=== PATIENT | female | born 1990 | race Caucasian/White ===

== ENCOUNTER 2020-10-03 06:13 | Inpatient (IN) | payer OTHER ==
[~2020-10-03] VITALS: Ht 165.1 cm; Wt 128.0 kg
[2020-10-03] VITALS (22 sets, daily range): BP systolic 117–185; BP diastolic 77–124
--- NOTE | 2020-10-03 06:20 | NUR ---
Patient admit/transfer from [facility] at 0610 to room 107 via guerny, accompanied by EMS personel x4. Patient alert/oriented to self, time, date and events but disoriented to place. Patient admitted for OD/SI S/P taking high doses of Excedrin and Tylenol. Patient reports being in a 'downward spiral' for the past few monthsl; last night she and her sister were arguing and her sister told her, 'just kill yourself', Patient states she has a hx of suicide attempt at age 16 which she took pills at that time also. Patient states she is bipolar but has not taken her meds for several months secondary to inability to afford. Patient does recognize and states she knows her sister "is not the problem". Patient denies pain but does have episode of coffee ground emesis. Patient transferred with secondo dose of Acetadole 5gm IV running at 131 CC/HR; patient to recieve a third dose of 10MG. Patient oriented to room, ICU routine, nrusing call light, TV control, diet (NPO), activity (BRP with assist), Numeric pain scale, 1:1 observation and POC. Patient verbalizes understanding.
[2020-10-03] MEDS ORDERED: PROCHLORPERAZINE 10 MG/2 ML VIAL. IV PRN (06:45)
[2020-10-03] MEDS ORDERED: PROCHLORPERAZINE 5 MG TABLET. PO PRN (06:45)
[2020-10-03] MEDS: LABETALOL 20 MG/4 ML DISP.SYRIN. IVP PRN ×2 (06:50→20:49)
[2020-10-03 08:32] LABS: CALCIUM 8.2 mg/dL (8.5-10.1); CREATININE 0.5 mg/dL (0.6-1.0); GFR 145.9; POTASSIUM 3.5 mmol/L (3.5-5.1)
[2020-10-03 08:36] LABS: ACETAMIN 75.52 mcg/ml (10-30); SALIC 9.8 mg/dL (2.8-20.0)
[2020-10-03 08:36] LABS: ISTAT BE VENOUS -4 mmol/L (0-3); ISTAT HCO3 VEN 21 mmol/L (24-28); ISTAT PCO2 VEN 37 mmHg (41-51); ISTAT PH VEN 7.36 (7.32-7.42); ISTAT PO2 VEN 46 mmHg (20-40); ISTAT SAT O2 VEN 81 %; ISTAT TCO2 VEN 22 mmol/L (21-32)
[2020-10-03 08:37] LABS: ALBUMIN 3.1 g/dL (3.4-5.0); ALBUMIN/GLOBULIN RATIO 0.9 (1.0-1.7); TOTAL BILIRUBIN 0.4 mg/dL (0.2-1.0); TOTAL PROTEIN 6.6 g/dL (6.4-8.2)
--- NOTE | 2020-10-03 08:42 | HP ---
ADMIT DATE: 10/03/2020 HISTORY OF PRESENT ILLNESS: The patient is a 29-year-old female patient with past medical history significant for anxiety, depression who presented to the Emergency Room with chief complaint of suicidal attempt and overdose. She took about 30 grams of acetaminophen, 25 gram of aspirin and 6500 mg of caffeine on top of some ethanol and cocaine. Stated that she took all of these, Tylenol and Excedrin pills around 12:00 to 12:30 in an attempt to commit suicide after arguing with her sister who told her she should just kill herself. She stated she also had had ethanol and cocaine about the same time. Stated that since then she has an episode of nonbloody, nonbilious emesis and feels tired, but currently has no other symptoms. She denied any recent trauma, fever. She apparently denied any homicidal ideation or hallucination. She stated that she has 2 similar episodes when she was 16 and also 19 years old and was admitted to an inpatient Psych Unit before. She was extensively evaluated in the Emergency Room of [facility]. Her EKG showed that she was in sinus rhythm, heart rate 92 beats per minute. Her lab work showed that her acetaminophen level was 203 mcg/mL about 4 hours after ingestion and her salicylate was 12.5 mg/dL 4 hours after ingestion. Blood alcohol level was high at 28 mg/dL and she was positive for cocaine and amphetamine and methamphetamine. She was apparently started on N-acetylcysteine as per protocol and she received the first dose and the second dose was ongoing by the time she arrived to the [facility]. PAST MEDICAL HISTORY: Significant for -induced hypertension. She has also anxiety and depression and previous suicidal attempt. PAST SURGICAL HISTORY: Significant for 2 C-sections and cholecystectomy. ALLERGIES: She has no known drug allergies. MEDICATIONS: She is supposed to be on Celexa, but apparently she lost her insurance according to her. FAMILY HISTORY: Noncontributory. SOCIAL HISTORY: She is from her . She has 3 children, twins 10 years old and another child 8 years old. She smoke cigarettes, drink alcohol and abuse cocaine. She apparently was fired from her job on the spot as her mom tried to document for her absence. Currently unemployed and she and her she and her sister live with her parents. PHYSICAL EXAMINATION: GENERAL: On arrival to the Emergency Room, she was well-developed and well-nourished, in no acute distress. No pallor, jaundice, cyanosis or thyromegaly. No jugular venous distention. No limb edema. VITAL SIGNS: Her heart rate was 88, blood pressure is 161/106, temperature was 98.2, respiratory rate 20, and oxygen saturation was 99% on room air. HEAD, EYES, EARS, NOSE, AND THROAT: Normocephalic, atraumatic. NECK: Supple. HEART: Showed normal first and second heart sounds, no gallop or murmur. CHEST: Clear to auscultation, no crepitation or rhonchi. ABDOMEN: Distended, soft, nontender. NEUROLOGIC: She is awake, alert, responding appropriately. Cranial nerves intact. She moves extremities without difficulty. LABORATORY DATA: Her lab work on arrival showed a white cell count of 10,500; hemoglobin 13.8; hematocrit 41, MCV 87 and platelet count 230,000 with normal manual differential. Her arterial blood gas showed a pH of 7.37, pCO2 of 38, pO2 of 28, bicarbonate 22 and oxygen saturation was 51% on FiO2 of 21%. Her chemistry showed a serum sodium 141, potassium 3.5, chloride 105, bicarbonate 23, anion gap of 13, BUN 7, creatinine 0.6. Estimated GFR was 118 mL per minute. Her glucose 125, calcium was 8.7. Total bilirubin, AST, ALT, alkaline phosphatase were normal. Total protein 6.8, albumin was 3.8 and lipase was 80. Urinalysis essentially unremarkable. Her urine test was negative. Her toxic screen showed that her salicylate level was 12.6 mg/dL about 4 hours after ingestion. Her acetaminophen level was 203 mcg/mL that is about 4 hours after ingestion. Her tox screen was positive for amphetamine, methamphetamine, cocaine, cannabinoids and alcohol. ASSESSMENT AND PLAN: The patient was treated with acetylcysteine as per protocol. She was getting her second dose by the time she arrived to the ICU [facility] and third dose will start around 9:00. Will follow the salicylate level and her blood gases every 2 hours as per protocol. In summary, this is a 29-year-old female patient with a suicidal attempt by overdosing on acetaminophen and salicylates. She also has alcohol abuse and cocaine abuse and cannabinoid abuse. The patient was admitted to [facility]. We will ask the Psych assessment team to see her when she is stable medically as apparently she had had suicidal attempt, very similar to this before when she was 16 years old and 19 years old and she was admitted for inpatient psychiatric stabilization before. HAKEEM/JASON/CHARISMA DR: Stephanie TID: [id number]
--- NOTE | 2020-10-03 09:55 | NUR ---
SS following for discharge planning. SS reviewed pt chart and discussed with pt RN. Pt is from home and is currently on room air. Pt had drug overdose and SI after argument with family. COVID19 test pending from [facility]. PAT team referral made for assessment and recommendations. SS will continue to follow for discharge planning.
[2020-10-03] MEDS ORDERED: ACETYLCYSTEINE INJ 10 GM in IV DEXTROSE 5% 1,000 ML IV ONE (10:00)
[2020-10-03 11:03] LABS: SALIC 8.4 mg/dL (2.8-20.0)
[2020-10-03 11:10] LABS: ALBUMIN 2.9 g/dL (3.4-5.0); ALBUMIN/GLOBULIN RATIO 0.9 (1.0-1.7); CALCIUM 7.8 mg/dL (8.5-10.1); CREATININE 0.5 mg/dL (0.6-1.0); GFR 145.9; POTASSIUM 3.5 mmol/L (3.5-5.1); TOTAL BILIRUBIN 0.3 mg/dL (0.2-1.0); TOTAL PROTEIN 6.3 g/dL (6.4-8.2)
[2020-10-04] VITALS (14 sets, daily range): BP systolic 113–167; BP diastolic 70–111
[2020-10-04 01:21] LABS: PROTHROMBIN TIME PATIENT 13.9 SEC (11.7-14.0)
[2020-10-04 01:27] LABS: ACETAMIN < 2 mcg/ml (10-30); ALBUMIN 2.9 g/dL (3.4-5.0); ALBUMIN/GLOBULIN RATIO 0.9 (1.0-1.7); CALCIUM 8.1 mg/dL (8.5-10.1); CREATININE 0.7 mg/dL (0.6-1.0); GFR 98.9; POTASSIUM 3.2 mmol/L (3.5-5.1); TOTAL BILIRUBIN 0.4 mg/dL (0.2-1.0); TOTAL PROTEIN 6.1 g/dL (6.4-8.2)
--- NOTE | 2020-10-04 07:42 | NUR ---
pt was resting in bed and sitter next to her in room. she seemed to be in good spirits, wanted to know if she was going to get to go home today, explained that the PAT team needed to clear her before we can go any further with discharge. her labs other then k+ 3.2 were better today. we will just wait till the PAT team is able to come and speak with the pt. Hamilton Merlos RN
--- NOTE | 2020-10-04 09:33 | PN ---
DATE: 10/04/2020 SUBJECTIVE: The patient is resting flat comfortably in bed, in no apparent distress. On questioning her, she denied any complaint. The nursing staff did not voice any concern. She was treated as per protocol for Tylenol overdose and her Tylenol level this morning was less than 2 and her salicylate was less than 8.4. OBJECTIVE: GENERAL: On examining her, she looked well and was clearly in no apparent respiratory distress. No pallor, jaundice, cyanosis or thyromegaly. No jugular venous distention. No limb edema. VITAL SIGNS: Her heart rate was 62, blood pressure 155/99, temperature was 99, respiratory rate was 16 and oxygen saturation was 97% on room air. HEAD, EYES, EARS, NOSE AND THROAT: Normocephalic, atraumatic. NECK: Supple. HEART: Showed normal first and second heart sounds, no gallop or murmur. CHEST: Clear to auscultation. No crepitation or rhonchi. ABDOMEN: Distended, soft, nontender. NEUROLOGIC: She is awake, alert, responding appropriately. All cranial nerves intact. She moves extremities without difficulty. LABORATORY DATA: Showed a serum sodium of 141, potassium 3.2, chloride 106, bicarbonate 25, anion gap of 10, BUN 6, creatinine 0.7. Estimated GFR was 98 mL per minute. Her glucose 102, calcium was 8.1. Total bilirubin, AST, ALT, alkaline phosphatase were normal. Total protein was 6.1, albumin was 2.9. Her prothrombin ____ time was 13.9, INR 1.1. Toxic screen showed salicylate was 8.4 with the therapeutic range between 2.8 and 20 and her acetaminophen level is less than 2 mcg/mL. ASSESSMENT: Suicidal attempt with Tylenol overdose, treated with N-acetylcysteine as per protocol. Other medical problems include alcohol abuse, cocaine abuse and cannabinoid abuse. The patient is medically stable. PLAN: We will consult the psych assessment team to decide on further management as she is likely need to have an inpatient psych treatment given that she has had similar attempts before after which she was admitted to inpatient psychiatric stabilization. HAKEEM/KATHY/MILAN DR: Stephanie TID: [id number]
--- NOTE | 2020-10-04 10:25 | NUR ---
SS following up with discharge planning. SS reviewed pt chart and discussed with pt RN. Pt is currently on room air. Pt had drug overdose and SI after argument with family. Pelon from PAT team to meet with pt today to assess. Pt transferred to room 668. Ameena OLIVARES, to follow.
[2020-10-04] MEDS ORDERED: NICOTINE 14MG PATCH. TD SCH (12:15)
[2020-10-04] MEDS: LORazepam 0.5 MG TABLET PO PRN ×2 (12:51→18:58)
[2020-10-04] MEDS: NICOTINE POLACRILEX 2MG GUM PACKAGE of 12. BC PRN ×2 (15:54→18:58)
--- NOTE | 2020-10-04 16:00 | NUR ---
Around 1230 After talking to the PAT team and determining she needed inpatient treatment, patient became very upset and stating "this is bullshit, I just want to go home. I don't even know where this Doctor is getting information from if I haven't seen him." Patient was told Dr. Dunn saw her yesterday and today down in the ICU. Patient took off her Telemetry stating it was too hot to wear it. Patient was asking about leaving AMA, pt was told she did not have that right since she had tried to kill herself and that is why she was at the hospital. Patient then went on saying, "well what if I just leave?" Patient was told by this RN that we would call security and might have to restrain her if she attempted to leave. Also, here placement would turn to involuntary instead of voluntary. Patient was given Ativan and nicotine patch around 1250. Patient got out of bed and stormed into the bathroom. After using the bathroom patient went back to bed, RN stated to let the Ativan work to help her relax. Patient in bed with covers over her head. About 15 minutes later patient called on the call light and stated her ativan and nicotine patch were not working, and took off the nicotine patch. RN told patient she needed to give it time for it to work. Patient stated she wanted nicotine gum if we had any. This RN would call the doctor. After a while patient woke up from a nap and patient stated Ativan finally had kicked in. Patient is calm and wanting food, stating please and thank you. ROD Jackson, still at bedside. Will continue to monitor patient.
--- NOTE | 2020-10-04 19:00 | NUR ---
CIPRIANO Huerta from [facility], called stating patient was accepted. Nurse to Nurse report was done via phone from this RN to CIPRIANO De La Rosa. Patient aware of plans. Transport was set up for patient though [place] [place] [employer]. ETA about an hour. Night nurse Kathleen was made aware. All belongings and medications to be given to patient at pick up operator.
--- NOTE | 2020-10-04 20:08 | NUR ---
Pt was picked up by EMS by 1999, report and paperwork given. Pt refused the meds she had with her which this RN got from pharmacy. Med to be disposed accordingly. No complaints @ this time.
== END 2020-10-04 20:08 | DRG 918 ==
LOC: 1 WEST ICU 06:13 → 6 SOUTH 10-04 08:55
PROVIDERS: ADMIT Internal Medicine; ATTEND Internal Medicine
DX: T39.1X2A Poisoning by 4-Aminophenol derivatives, intentional self-harm, initial encounter (principal); F17.210 Nicotine dependence, cigarettes, uncomplicated; F41.9 Anxiety disorder, unspecified; F32.9 Major depressive disorder, single episode, unspecified; T39.092A Poisoning by salicylates, intentional self-harm, initial encounter; F10.10 Alcohol abuse, uncomplicated; F12.10 Cannabis abuse, uncomplicated; F14.10 Cocaine abuse, uncomplicated; Y90.0 Blood alcohol level of less than 20 mg/100 ml; T40.5X2A Poisoning by cocaine, intentional self-harm, initial encounter; Z56.0 Unemployment, unspecified; Z91.5 Personal history of self-harm; Z90.49 Acquired absence of other specified parts of digestive tract; Y92.89 Other specified places as the place of occurrence of the external cause
CPT/HCPCS: 36415; 80053; 80329; 82803; 85610; J0132; J0780; J3490; J7060; G0378; G0480